=== PATIENT | male | born 1975 | race African-American/Black ===

== ENCOUNTER 2019-01-08 06:52 | Day surgery (SDC) | payer OTHER ==
[~2019-01-08] VITALS: Ht 170.2 cm; Wt 64.0 kg
[2019-01-08 08:00] VITALS: BP 133/91; PULSE 69; RESP 18; Ht 170.2 cm; Wt 64.0 kg
[2019-01-08] MEDS ORDERED: LIDOCAINE 4% SOLUTION 50 ML BTL ONE (08:21)
[2019-01-08] MEDS ORDERED: TRAZADONE (08:31)
[2019-01-08] MEDS ORDERED: WELLBUTRIN (08:31)
[2019-01-08] MEDS ORDERED: DESCOVY (08:31)
[2019-01-08] MEDS ORDERED: TIVICAY (08:31)
[2019-01-08] MEDS ORDERED: FENTAnyl 50 MCG/ML VIAL ONE (09:26)
[2019-01-08] MEDS ORDERED: MIDAZOLAM 1 MG/ML 2 ML INJ ONE ×3 (09:26)
[2019-01-08 09:35] VITALS: BP 114/77; PULSE 69; RESP 18
== END 2019-01-08 11:07 | disposition home or self-care (01) ==
LOC: GIL 06:52
PROVIDERS: ATTEND Internal Medicine Gastroenterology
DX: R19.5 Other fecal abnormalities (principal); K64.4 Residual hemorrhoidal skin tags; K64.8 Other hemorrhoids; K20.8 Other esophagitis; K29.50 Unspecified chronic gastritis without bleeding
CPT/HCPCS: 43239; 45380; 88305; J2250; J3010; Z7610